=== PATIENT | male | born 1960 | race Caucasian/White ===

== ENCOUNTER 2020-05-30 05:28 | Day surgery (SDC) | payer BC ==
[~2020-05-30] VITALS: Ht 182.9 cm; Wt 55.3 kg
--- NOTE | ~2020-05-30 | OP ---
PATIENT NAME: JONATAN SALMERON MEDICAL RECORD: [id number] :58 LOCATION:[facility] ADMISSION DATE: SURGEON: LG STOCKTON MD DATE OF OPERATION: 05/30/2020 PREOPERATIVE DIAGNOSES: 1. Recurrent malignant melanoma of the right lower extremity. 2. Muscular dystrophy. POSTOPERATIVE DIAGNOSES: 1. Recurrent malignant melanoma of the right lower extremity. 2. Muscular dystrophy. PROCEDURE: 1. Wide local excision of right lower extremity recurrent melanoma. 2. Right inguinal sentinel lymph node biopsy times 2. SURGEON: Lg Stockton MD DESCRIPTION OF PROCEDURE: Preoperatively, the patient underwent lymphoscintigraphy showing uptake in the right inguinal region. When the patient was taken to the operating room the right lower extremity and right groin were prepped and draped in sterile fashion. A 6 x 14 cm area was marked out on the right anterior thigh and elliptical ovoid incision was made around the 1.7 cm lesion on the anterior aspect of the right thigh. Using sharp dissection, we came through the skin and electrocautery was used to come through the subcutaneous tissues. We took the mass off of the fascia and marked it appropriately before sending it off for permanent specimen. There was no evidence of any deep penetration of the mass into the fascia. We then approached the patient's right groin. Two areas were found with high readings using a Neoprobe. An oblique incision was made overlying each of these lesions and in each of these spots lymphoid tissue was found. This tissue was removed using clips and a reading of 315 and 220 were obtained. I did not see any evidence of any significant uptake in the remainder of the groin. The patient did appear to have some uptake in the bladder. The wounds were irrigated out with normal saline and any bleeding was treated with clips or ties. The subcutaneous tissues of the inguinal wounds were reapproximated with interrupted 3-0 Vicryl and then were closed with running subcutaneous 5-0 Monocryl. We undermined the tissue of the right anterior thigh at least the size of the wound in either direction of the fatty tissue off of the fascia. With this, I was able to reapproximate the tissues first with an interrupted layer of 3-0 Vicryl to the subcutaneous tissues followed by an outer layer of vertical mattress 2-0 nylons. There did not appear to be too much tension on the tissues. A total of 20 mL of 0.25% Marcaine with epinephrine was infused into the surrounding tissues and the wounds were dressed appropriately. COMPLICATIONS: None. CONDITION: Stable. ANESTHESIA: General endotracheal and local. BLOOD LOSS: 50 mL. TRANSINT:[id number] Voice Confirmation ID: [id number] DOCUMENT ID: [id number] OPERATIVE REPORT [id number] JONATAN SALMERON CHRISTIAN MD CC: GUANAKO LEROY MD, CANDIDO NERI and HECTOR HAMMONDS MD [id number] DICTATION DATE: 05/30/20 1035 TELETRAY OPERATOR: 05/30/20 1513 [facility] [place] 05/30/20 [facility] [address] [place] [address]
[~2020-05-30 05:28] MED LIST: HYDROCODON-ACE1 EA10 PO; NAPROSYN500 MG PO; VITAMIN D10000 UNI1 PO
[2020-05-30 07:03] VITALS: BP 141/78; Ht 182.9 cm; Wt 55.3 kg
[2020-05-30] MEDS ORDERED: HYDROCODON-ACE1 EA10 PO (10:22)
--- NOTE | 2020-05-30 11:34 | NUR ---
DISCHARGE INSTRUCTIONS GIVEN AND PT AND FATHER VERBALIZED AN UNDERSTANDING. RX'D WITH SOHA
--- NOTE | 2020-05-30 11:51 | NUR ---
IV D/C'D WITH CANNULA INTACT, PRESSURE HELD AND DRSG PLACED.
== END 2020-05-30 11:59 | disposition home or self-care (01) ==
LOC: D.SP 05:28 → D.NM 08:00 → EDSTATUS 08:00 → D.SP 11:59
PROVIDERS: ATTEND Surgery
DX: C43.71 Malignant melanoma of right lower limb, including hip (principal); G71.00 Muscular dystrophy, unspecified; K64.4 Residual hemorrhoidal skin tags